=== PATIENT | female | born 2000 | race Caucasian/White ===

== ENCOUNTER → 2018-04-20 | Outpatient (CLI) | payer OTHER ==
[~2018-04-20] MED LIST: ACE3 PO
--- NOTE | 2018-04-20 16:14 | RADIOLOGY IMAGING REPORT ---
FACILITY: [facility] PATIENT NAME: Tri Gregg : 2000 MR: [id number] V: [id number] EXAM DATE: ORDERING PHYSICIAN: SHAVON BARRETT TECHNOLOGIST: Location: [facility] Patient: Tri Gregg : 2000 Visit/Account:[id number] Date of Sevice: 04/20/2018 Exam type: KNEE 3 VIEW LEFT History: Left knee pain Comparison: None. Findings: Three views of the left knee reveal no evidence of acute fracture or dislocation. No intra-articular radiopaque loose bodies or significant arthritic change is present. There is no evidence of lytic o r blastic bone lesions IMPRESSION: 1. Unremarkable left knee series. If patient's symptoms persist MR may be helpful Report Dictated By: Adrienne Mendoza MD at 04/20/2018 4:09 PM Report E-Signed By: Adrienne Mendoza MD at 04/20/2018 4:10 PM WSN:[email or web address]
== END ==
LOC: RAD 14:36
PROVIDERS: ATTEND Nurse Practitioner Family
DX: M25.562 Pain in left knee (principal)

== ENCOUNTER → 2018-06-02 | Outpatient (CLI) | payer OTHER ==
--- NOTE | 2018-06-02 15:41 | RADIOLOGY IMAGING REPORT ---
FACILITY: [facility] PATIENT NAME: Tri Gregg : 2000 MR: [id number] V: [id number] EXAM DATE: ORDERING PHYSICIAN: SHAVON BARRETT TECHNOLOGIST: Location: [facility] Patient: Tri Gregg : 2000 Visit/Account:[id number] Date of Sevice: 06/02/2018 MRI left knee without contrast Indication: Knee pain. Difficulty with flexion and extension. Comparison: Plain films April 20, 2018 are reviewed. Technique: Multiplanar, multisequence MRI examination is performed of the left knee without contrast. Findings: Examination of the medial compartment demonstrates a normal medial meniscus. The articular cartilage surfaces are normal. Examination of the lateral compartment demonstrates a normal lateral meniscus. The articular cartilag e surfaces are normal. Examination of the patellofemoral compartment demonstrates focal chondrosis and fissuring at the cent ral median ridge of the patella. No subchondral edema or cyst formation. The trochlear surfaces are m aintained. ACL and PCL are intact. The MCL is intact. The lateral collateral ligament complex is maintained. The extensor mechanism is intact. There is mild patella ramon identified. There is abnormal edema gaurang ntified within the superior and lateral margin of Hoffa's fat pad. The TT-TG distance measures 1.4 cm . A trace and likely physiologic joint effusion is seen. IMPRESSION: 1. Intact left knee menisci and cruciate ligaments. 2. 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 3. Focal edema within the superior and lateral margin of Hoffa's fat pad with mild patella ramon. TT-T G distance as above. Findings can be seen with patellar maltracking and impingement. Clinical correla tion is necessary. Report Dictated By: Fly Otero at 06/02/2018 3:29 PM Report E-Signed By: Fly Otero at 06/02/2018 3:36 PM WSN:[email or web address]
== END ==
LOC: MRI 06:54
PROVIDERS: ATTEND Nurse Practitioner Family
DX: M25.462 Effusion, left knee (principal)